=== PATIENT | female | born 1950 | race American Indian/Alaskan Native ===

== ENCOUNTER 2017-12-07 05:40 | Day surgery (SDC) | payer MEDICARE, OTHER ==
[~2017-12-07] VITALS: Ht 154.9 cm; Wt 72.6 kg
[~2017-12-07 05:40] MED LIST: ASPIRIN EC81 MG PO; CLARITIN10 MG PO; CYCLOBENZAPRINE10 MG PO; FISH OIL300 MG PO; FOLGARD TABLET1 EAC1 PO; GLIPIZIDE XL10 MG PO; GLUCERNA237 M1 PO; IBUPROFEN800 MG PO; IRON325 M1 PO; JANUMET 50-1,01 EACH PO; KONDREMUL2.5 ML/5 M PO; LANTUS SOL100 UNIT/1 SUB-Q; LIDOCAINE700 MG TOP; LISINOPRIL10 MG PO; LISINOPRIL5 MG PO; LOPERAMIDE2 MG PO; LORATADINE10 MG PO; METFORMIN HCL1000 MG PO; METFORMIN HCL500 MG PO; PERCOCET 5-3251 EACH PO; PYRIDIUM200 MG PO; SENNA8.6 MG PO; SIMVASTATIN10 MG PO; TOLTERODINE TART2 MG PO; URSODIOL300 MG PO; VITAMIN B-12500 MCG PO; VITAMIN D32000 UNI1 PO; VITAMIN D5000 UNIT PO; VITAMIN E100 UNI1 PO; ZINC30 MG PO; [UNRECOGNIZED DRUG - OTHER]
[2017-12-07] MEDS ORDERED: HYDROXYZINE HCL25 MG PO (06:03)
--- NOTE | 2017-12-07 10:03 | OR ---
[facility] [address], [place] [address] Signed DATE OF OPERATION: 12/07/2017 SURGEON: Rajan Hall MD PREOPERATIVE DIAGNOSIS: Chronic severe interstitial cystitis. POSTOPERATIVE DIAGNOSIS: Chronic severe interstitial cystitis. NAMES OF PROCEDURES: Diagnostic cystoscopy with hydrodistention. ANESTHESIA: General. ESTIMATED BLOOD LOSS: 30 mL. COMPLICATIONS: None. SPECIMENS: None. DRAINS: An 18-Yemeni Garcia catheter, connected to gravity drainage. INDICATIONS FOR PROCEDURE: Ms. Miles is a very pleasant 67-year-old female with a longstanding history of severe chronic interstitial cystitis. She was recently seen by me for her chronic symptoms. She underwent cystoscopy, but which was short lived due to her lack of tolerance of the procedure. She has undergone hydrodistention before in the past and has responded to the procedure. She presents today to undergo cystoscopy with hydrodistention for management of her chronic interstitial cystitis. OPERATIVE FINDINGS: 1. 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 There is no evidence of any suspicious masses or stones within the bladder. Bilateral ureteral orifices are in their normal anatomic location. Electronically Signed By: RAJAN HALL MD 12/07/17 1003 PATIENT NAME: MIKE MILES OPERATIVE REPORT DATE OF : 52 REPORT #: [id number] PHYSICIAN: RAJAN HALL MD PCP: TANIKA ULRICH REPORT IS CONFIDENTIAL AND NOT TO BE RELEASED WITHOUT AUTHORIZATION [facility] [address], [place] [address] Signed 2. During filling of the bladder, the patient did begin to ooze blood from the ulcerated mucosa. The bleeding was not severe enough to require active cauterization. It was hard to determine the exact amount of fluid instilled into the bladder because during the procedure, the patient continued to have intermittent bladder spasms that would force fluid out of her bladder. 3. At the end of the procedure, I inserted an 18-Yemeni two-way Garcia catheter and irrigated the catheter to retrieve any residual blood clots present after the procedure. At the end the procedure, her urine was light pink in color. DESCRIPTION OF PROCEDURE: After informed consent was obtained, the patient was taken back to the operating room. [facility] room table, where general anesthesia was induced. She was placed in the dorsal lithotomy position and her genitalia were prepped and draped in standard sterile fashion. Using a 30-degree lens and on a 22-Yemeni introducer, rigid cystoscope was inserted through the urethra into her bladder under direct visualization. Panendoscopic views of bladder were then obtained. Please see the findings. The patient immediately began to ooze blood during cystoscopy, limiting my visualization. However, I was able to appreciate the 2-3 rather large Hunner's ulcer present on the lateral gutierrez and dome of the bladder. I continued to fill the bladder and throughout the filling phase the patient intermittently experienced bladder spasms. She was given a total of two B and O suppositories during the procedure to prevent spasms. The distention continued for approximately 15 minutes, which is longer than usual due to the lack of max distention achieved due to detrusor instability. After about 20 minutes, the procedure was then terminated. The patient's bladder was then drained and an 18-Yemeni Garcia catheter was inserted into the patient's bladder and connected to gravity drainage. The catheter was irrigated a couple of times prior to connecting the catheter to gravity drainage. At the end the procedure, there were no significant blood clots present within the patient's bladder. The procedure was then terminated. The patient tolerated the procedure well without any complication. She will now be transferred to the postanesthesia care unit in stable condition. DISPOSITION: I discussed the details of today's procedure with the patient's and answered all of her questions. She will be sent home today in the company of her when she awakens from anesthetic. She will be given B and O suppositories #12 as needed for bladder spasms, along with Cipro 500 mg p.o. b.i.d. for a total of 5 days. I have also renewed her Uribel prescription and I have also given her oxybutynin 5 mg p.o. at bedtime for management of nocturia. She will be scheduled to return to clinic in approximately three weeks for postoperative evaluation. Electronically Signed By: RAJAN HALL MD 12/07/17 1003 PATIENT NAME: MIKE MILES OPERATIVE REPORT DATE OF : 52 REPORT #: [id number] PHYSICIAN: RAJAN HALL MD PCP: TANIKA ULRICH REPORT IS CONFIDENTIAL AND NOT TO BE RELEASED WITHOUT AUTHORIZATION [address] [address] Signed Rajan Hall MD AR/MODL /[id number] Copies: ~ Electronically Signed By: RAJAN HALL MD 12/07/17 1003 PATIENT NAME: MIKE MILES OPERATIVE REPORT DATE OF : 52 REPORT #: [id number] PHYSICIAN: RAJAN HALL MD PCP: TANIKA ULRICH REPORT IS CONFIDENTIAL AND NOT TO BE RELEASED WITHOUT AUTHORIZATION
== END 2017-12-07 13:00 | disposition home or self-care (01) ==
LOC: DS 05:40 → OPS 05:40 → DS 06:45 → OPS 06:45
PROVIDERS: Urology
PROC: 0T7B8ZZ Dilation of Bladder, Via Natural or Artificial Opening Endoscopic (ICD-10-PCS; principal; 2017-12-07 06:45)
DX: N30.10 Interstitial cystitis (chronic) without hematuria (principal); E11.9 Type 2 diabetes mellitus without complications; K21.9 Gastro-esophageal reflux disease without esophagitis; E66.9 Obesity, unspecified; H54.7 Unspecified visual loss; Z79.899 Other long term (current) drug therapy; Z79.4 Long term (current) use of insulin; Z88.0 Allergy status to penicillin; Z88.5 Allergy status to narcotic agent
CPT/HCPCS: J0696; J1100; J1170; J2250; J2405; J3010; J7120

== ENCOUNTER 2020-08-01 21:46 | Emergency (ER) | payer MEDICARE, OTHER ==
[~2020-08-01] VITALS: Ht 154.9 cm; Wt 64.9 kg
[~2020-08-01 21:46] MED LIST changes: +ASPIR-LOW81 MG PO; +ATORVASTATIN CA20 MG PO; +HYDROXYZINE HCL25 MG PO; +OXYBUTYNIN CHLOR5 MG PO; +TRULICITY0.75 MG/0. SUB-Q
[2020-08-01] MEDS ORDERED: LANTUS SOL100 UNIT/1 SUB-Q (22:02)
[2020-08-01] MEDS ORDERED: NOVOLOG FL100 UNIT/1 SUB-Q (22:03)
== END 2020-08-01 23:38 | disposition home or self-care (01) ==
LOC: ED 21:46
DX: E11.65 Type 2 diabetes mellitus with hyperglycemia (principal); Z91.19 Patient's noncompliance with other medical treatment and regimen; I10 Essential (primary) hypertension; Z88.0 Allergy status to penicillin; Z88.5 Allergy status to narcotic agent; Z91.018 Allergy to other foods; Z79.899 Other long term (current) drug therapy; Z79.82 Long term (current) use of aspirin; Z79.4 Long term (current) use of insulin
CPT/HCPCS: 80053; 81001; 82010; 82800; 85025; 99284; J7030

== ENCOUNTER 2022-02-11 07:50 | Emergency (ER) | payer MEDICARE, OTHER ==
[~2022-02-11] VITALS: Ht 154.9 cm; Wt 70.3 kg
[~2022-02-11 07:50] MED LIST changes: +NOVOLOG FL100 UNIT/1 SUB-Q
[2022-02-11] MEDS ORDERED: NAPROSYN500 MG PO (09:11)
[2022-02-11] MEDS ORDERED: PREDNISONE20 MG PO (09:11)
== END 2022-02-11 10:44 | disposition home or self-care (01) ==
LOC: ED 07:50
DX: U07.1 COVID-19 (principal); I10 Essential (primary) hypertension; E11.9 Type 2 diabetes mellitus without complications; J45.909 Unspecified asthma, uncomplicated; Z88.0 Allergy status to penicillin; Z91.018 Allergy to other foods; Z88.5 Allergy status to narcotic agent; Z88.6 Allergy status to analgesic agent; Z79.4 Long term (current) use of insulin; Z79.82 Long term (current) use of aspirin; Z79.899 Other long term (current) drug therapy
CPT/HCPCS: 87502; 94640; 94664; 96374; 99284-25; C9803; U0003

== ENCOUNTER 2023-02-06 21:40 | Observation (INO) | payer MEDICARE, OTHER ==
[~2023-02-06] VITALS: Ht 154.9 cm; Wt 70.3 kg
--- OUTSIDE RECORDS SUMMARY | ~2023-02-06 | XMS | Continuity of Care Document ---
Demographics + + + | Address | [address] | | | [place] [address] | + + + | Preferred Language | Unknown | + + + | Marital Status | | + + + | Uatsdin Affiliation | Unknown | + + + | Race | or | + + + | Ethnic Group | Not or | + + + Author + + + | Author | [facility] | + + + | Organization | [facility] | + + + | Address | [address] [place] [address] | | | [place] [address] | + + + | Phone | | + + + Care Team Providers + + + + | Care Youtuber Name | Role | Phone | + + + + Unavailable | Unavailable | + + + + Unavailable | Unavailable | + + + + Allergies and Intolerances + + + + + + | date | description | facility | reaction | severity | + + + + + + | (no date) | Mild | [facility] | (no reaction) | (no severity) | | [facility] | | | + + + + + + | (no date) | Codeine | [facility] | (no reaction) | (no severity) | | | [facility] | | | + + + + + + | (no date) | Pineapple | [facility] | (no reaction) | (no severity) | | | [facility] | | | + + + + + + | (no date) | Nausea alone | [facility] | (no reaction) | (no severity) | | | [facility] | | | + + + + + + | (no date) | Penicillin | [facility] | (no reaction) | (no severity) | | | [facility] | | | + + + + + + | (no date) | Penicillin | [facility] | (no reaction) | (no severity) | | | [facility] | | | + + + + + + | (no date) | Codeine | [facility] | (no reaction) | (no severity) | | | [facility] | | | + + + + + + Encounters No information. Functional Status No information. Immunizations No information. Medications + + + + | date | description | facility | + + + + | 2022-02-13 00:00 | OXYCODONE | [facility] | | | HCL/ACETAMINOPHEN | | + + + + | 2022-02-11 00:00 | NAPROXEN | [facility] | + + + + | 2016-08-07 00:00 | PHENAZOPYRIDINE HCL | [facility] | + + + + | 2018-04-04 00:00 | PHENAZOPYRIDINE HCL | [facility] | + + + + | 2022-02-13 00:00 | PHENAZOPYRIDINE HCL | [facility] | + + + + | 2022-02-13 00:00 | ASPIRIN | [facility] | + + + + | 2022-02-13 00:00 | DULAGLUTIDE | [facility] | + + + + | 2022-02-13 00:00 | INSULIN ASPART | [facility] | + + + + | 2022-02-13 00:00 | IBUPROFEN | [facility] | + + + + | 2022-02-13 00:00 | ZINC GLUCONATE | [facility] | + + + + | 2022-02-13 00:00 | VITAMIN E ACID SUCCINATE | [facility] | + + + + | 2022-02-13 00:00 | LORATADINE | [facility] | + + + + | 2022-02-13 00:00 | ASPIRIN | [facility] | + + + + | 2022-02-13 00:00 | FERROUS SULFATE | [facility] | + + + + | 2022-02-13 00:00 | LISINOPRIL | [facility] | + + + + | 2022-02-13 00:00 | LORATADINE | [facility] | + + + + | 2022-02-11 00:00 | predniSONE | [facility] | + + + + | 2022-02-13 00:00 | SENNOSIDES | [facility] | + + + + | 2022-02-13 00:00 | CYANOCOBALAMIN (VITAMIN | [facility] | | | B-12) | | + + + + | 2022-02-13 00:00 | LISINOPRIL | [facility] | + + + + | 2022-02-13 00:00 | SIMVASTATIN | [facility] | + + + + | 2022-02-13 00:00 | GLIPIZIDE | [facility] | + + + + | 2022-02-13 00:00 | ATORVASTATIN CALCIUM | [facility] | + + + + | 2022-02-13 00:00 | CHOLECALCIFEROL (VITAMIN | [facility] | | | D3) | | + + + + | 2022-02-13 00:00 | CYCLOBENZAPRINE HCL | [facility] | + + + + | 2022-02-13 00:00 | INSULIN | [facility] | | | HUM. DANIELRECANGELALOG | | + + + + | 2022-02-13 00:00 | TOLTERODINE TARTRATE | [facility] | + + + + | 2022-02-13 00:00 | CHOLECALCIFEROL (VITAMIN | [facility] | | | D3) | | + + + + | 2022-02-13 00:00 | URSODIOL | [facility] | + + + + | 2022-02-13 00:00 | METFORMIN HCL | [facility] | + + + + | 2022-02-13 00:00 | METFORMIN HCL | [facility] | + + + + | 2022-02-13 00:00 | SITAGLIPTIN PHOS/METFORMIN | [facility] | | | HCL | | + + + + | 2022-02-13 00:00 | OXYBUTYNIN CHLORIDE | [facility] | + + + + | 2015-10-20 00:00 | LOPERAMIDE HCL | [facility] | + + + + | 2022-02-13 00:00 | hydrOXYzine HCL | [facility] | + + + + Problems + + + + | date | description | facility | + + + + | 2014-04-30 00:00 | Sepsis | [facility] | + + + + | 2014-07-16 00:00 | Cholangitis | [facility] | + + + + | 2015-03-13 00:00 | Sprain of ankle | [facility] | + + + + | 2015-10-20 00:00 | Acute gastroenteritis | [facility] | + + + + | 2016-08-07 00:00 | Dysuria | [facility] | + + + + | 2016-08-07 00:00 | Hematuria | [facility] | + + + + | 2016-10-02 00:00 | Nonspecific chest pain | [facility] | + + + + | 2017-12-07 00:00 | Chronic interstitial | [facility] | | | cystitis with hematuria | | + + + + | 2018-04-04 00:00 | Bladder spasm | [facility] | + + + + | 2019-02-06 00:00 | Hyperglycemia | [facility] | + + + + | 2022-02-11 00:00 | Infection due to severe [facility] | | | acute respiratory syndrome | | | | coronavirus 2 (SARS-CoV-2) | | + + + + Procedures No information. Results/Labs +--------+--------+ +---------+--------+---------+ | test | date | facility | value | unit | notes | +--------+--------+ +---------+--------+---------+ + + | Result panel 1 | + + + + + + + + + | | 2022-02-11 | [facility] | POSITIVE | (missing) | (missing) | | (unavailable | 08:03 | [place] | | | | [facility] ) [facility] | | | | + + + + + + + + + | Result panel 2 | + + + + + + + + + | | 2022-02-11 | [facility] | NEGATIVE | (missing) | (missing) | | (unavailable | 08:03 | [facility] | [facility] | | | | + + + + + + + + + | Result panel 3 | + + + + + + + + + | | 2022-02-11 | [facility] | NEGATIVE | (missing) | (missing) | | (unavailable | 08:03 | [facility] | | | | + + + + + + + + + | Result panel 4 | + + + + + + + + + | | 2022-02-11 | [facility] | NEGATIVE | (missing) | (missing) | | (unavailable | 08:03 | [facility] | | | | + + + + + + + Social History No information. Vital Signs + + + +---------+ | date | measurement | value | units | + + + +---------+ | 2022-02-11 00:00 | BMI | 29.3 | kg/m2 | + + + +---------+ | 2022-02-11 00:00 | BP_diastolic | 73 | mmHg | + + + +---------+ | 2022-02-11 00:00 | BP_systolic | 110 | mmHg | + + + +---------+ | 2022-02-11 00:00 | heart_rate | 94 | /min | + + + +---------+ | 2022-02-11 00:00 | height_metric | 154.94 | cm | + + + +---------+ | 2022-02-11 00:00 | height_standard | 61 | in | + + + +---------+ | 2022-02-11 00:00 | o2_saturation | 97 | % | + + + +---------+ | 2022-02-11 00:00 | respiration_rate | 18 | /min | + + + +---------+ | 2022-02-11 00:00 | temperature_metric | 37 | C | | | | | | + + + +---------+ | 2022-02-11 00:00 | | 98.6 | F | | | temperature_standar | | | | | d | | | + + + +---------+ | 2022-02-11 00:00 | weight_metric | 70.31 | kg | + + + +---------+ | 2022-02-11 00:00 | weight_standard | 155 | lb | + + + +---------+ | 2022-02-11 00:00 | weight_standard | 155.01 | lb | + + + +---------+"
--- OUTSIDE RECORDS SUMMARY | ~2023-02-06 | XMS | Continuity of Care Document ---
Demographics + + + | Address | [address] | | | [place] [address] | + + + | Preferred Language | Unknown | + + + | Marital Status | | + + + | Rastafari Affiliation | Unknown | + + + | Race | or | + + + | Ethnic Group | Not or | + + + Author + + + | Author | [facility] | + + + | Organization | [facility] | + + + | Address | [address] [place] [address] | | | [place] [address] | + + + | Phone | | + + + Care Team Providers + + + + | Care Quality Improvement Coordinator Name | Role | Phone | + [...] + + + | (no date) | hydrocodone | [facility] | (no reaction) | (no severity) | | | bitartrate | | | | + + + + + + | (no date) | Penicillins | [facility] | (no reaction) | (no severity) | + + + + + + | (no date) | codeine | [facility] | (no reaction) | (no severity) | + + + + + + | (no date) | pineapple | [facility] | (no reaction) | (no severity) | + + + + + + [...] + | 2022-02-13 00:00 | OXYCODONE | [facility] | | | HCL/ACETAMINOPHEN | | + + + + | 2022-02-11 00:00 | NAPROXEN | [facility] | + + + + | 2016-08-07 00:00 | PHENAZOPYRIDINE HCL | [facility] | + + + + | 2018-04-04 00:00 | PHENAZOPYRIDINE HCL | [facility] | + + + + | 2022-02-13 00:00 | PHENAZOPYRIDINE HCL | [facility] | + + + + | 2022-02-13 00:00 | ASPIRIN | [facility] | + + + + | 2022-02-13 00:00 | DULAGLUTIDE | [facility] | + + + + | 2022-02-13 00:00 | INSULIN ASPART | [facility] | + + + + | 2022-02-13 00:00 | IBUPROFEN | [facility] | + + + + | 2022-02-13 00:00 | ZINC GLUCONATE | [facility] | + + + + | 2022-02-13 00:00 | VITAMIN E ACID SUCCINATE | [facility] | + + + + | 2022-02-13 00:00 | LORATADINE | [facility] | + + + + | 2022-02-13 00:00 | ASPIRIN | [facility] | + + + + | 2022-02-13 00:00 | FERROUS SULFATE | [facility] | + + + + | 2022-02-13 00:00 | LISINOPRIL | [facility] | + + + + | 2022-02-13 00:00 | LORATADINE | [facility] | + + + + | 2022-02-11 00:00 | predniSONE | [facility] | + + + + | 2022-02-13 00:00 | SENNOSIDES | [facility] | + + + + | 2022-02-13 00:00 | CYANOCOBALAMIN (VITAMIN | [facility] | | | B-12) | | + + + + | 2022-02-13 00:00 | LISINOPRIL | [facility] | + + + + | 2022-02-13 00:00 | SIMVASTATIN | [facility] | + + + + | 2022-02-13 00:00 | GLIPIZIDE | [facility] | + + + + | 2022-02-13 00:00 | ATORVASTATIN CALCIUM | [facility] | + + + + | 2022-02-13 00:00 | CHOLECALCIFEROL (VITAMIN | [facility] | | | D3) | | + + + + | 2022-02-13 00:00 | CYCLOBENZAPRINE HCL | [facility] | + + + + | 2022-02-13 00:00 | INSULIN | [facility] | | | HUM. DANIELRECCesiliaANLOG | | + + + + | 2022-02-13 00:00 | TOLTERODINE TARTRATE | [facility] | + + + + | 2022-02-13 00:00 | CHOLECALCIFEROL (VITAMIN | [facility] | | | D3) | | + + + + | 2022-02-13 00:00 | URSODIOL | [facility] | + + + + | 2022-02-13 00:00 | METFORMIN HCL | [facility] | + + + + | 2022-02-13 00:00 | METFORMIN HCL | [facility] | + + + + | 2022-02-13 00:00 | SITAGLIPTIN PHOS/METFORMIN | [facility] | | | HCL | | + + + + | 2022-02-13 00:00 | OXYBUTYNIN CHLORIDE | [facility] | + + + + | 2015-10-20 00:00 | LOPERAMIDE HCL | [facility] | + + + + | 2022-02-13 00:00 | hydrOXYzine HCL | [facility] | + + + + Problems + + + + | date | description | facility | + + + + | 2014-04-30 00:00 | Sepsis | [facility] | + + + + | 2014-07-16 00:00 | Cholangitis | [facility] | + + + + | 2015-03-13 00:00 | Sprain of ankle | [facility] | + + + + | 2015-10-20 00:00 | Acute gastroenteritis | [facility] | + + + + | 2016-08-07 00:00 | Dysuria | [facility] | + + + + | 2016-08-07 00:00 | Hematuria | [facility] | + + + + | 2016-10-02 00:00 | Nonspecific chest pain | [facility] | + + + + | 2017-12-07 00:00 | Chronic interstitial | [facility] | | | cystitis with hematuria | | + + + + | 2018-04-04 00:00 | Bladder spasm | [facility] | + + + + | 2019-02-06 00:00 | Hyperglycemia | [facility] | + + + + | 2022-02-11 00:00 | Infection due to severe | [facility] | | | acute respiratory syndrome | | | | coronavirus 2 (SARS-CoV-2) | | + + + + | 2022-02-11 07:50 | TYPE 2 DIABETES MELLITUS | [facility] | | | WITHOUT COMPLICATIONS | | + + + + | 2022-02-11 07:50 | Essential (primary) | [facility] | | | hypertension | | + + + + | 2022-02-11 07:50 | UNSPECIFIED ASTHMA, | [facility] | | | UNCOMPLICATED | | + + + + | 2022-02-11 07:50 | COUGH, UNSPECIFIED | [facility] | + + + + | 2022-02-11 07:50 | COVID-19 | [facility] | + + + + | 2022-02-11 07:50 | FIELD SUPPORT REP (CURRENT) USE OF | [facility] | | | INSULIN | | + + + + | 2022-02-11 07:50 | FIELD SUPPORT REP (CURRENT) USE OF | [facility] | | | ASPIRIN | | + + + + | 2022-02-11 07:50 | OTHER FIELD SUPPORT REP (CURRENT) | [facility] | | | DRUG THERAPY | | + + + + | 2022-02-11 07:50 | ALLERGY STATUS TO | [facility] | | | PENICILLIN | | + + + + | 2022-02-11 07:50 | ALLERGY STATUS TO NARCOTIC | [facility] | | | AGENT STATUS | | + + + + | 2022-02-11 07:50 | ALLERGY STATUS TO | [facility] | | | ANALGESIC AGENT STATUS | | + + + + | 2022-02-11 07:50 | ALLERGY TO OTHER FOODS | [facility] | + + + + | 2022-08-20 08:43 | INTERSTITIAL CYSTITIS | [facility] | | | (CHRONIC) WITHOUT HEMATURIA | | | | | | + + + + | 2022-10-01 07:11 | INTERSTITIAL CYSTITIS | [facility] | | | (CHRONIC) WITHOUT HEMATURIA | | | | | | + + + + | 2022-11-04 12:41 | ENCNTR SCREEN MAMMOGRAM | [facility] | | | FOR MALIGNANT NEOPLASM OF | | | | BREAST | | + + + + Procedures [...]
--- OUTSIDE RECORDS SUMMARY | ~2023-02-06 | XMS | Continuity of Care Document ---
Demographics + + + | Address | [address] | | | [place] [address] | + + + | Preferred Language | Unknown | + + + | Marital Status | | + + + | Episcopal Affiliation | Unknown | + + + | Race | or | + + + | Ethnic Group | Not or | + + + Author + + + | Author | [facility] | + + + | Organization | [facility] | + + + | Address | [address] [place] [address] | | | [place] [address] | + + + | Phone | | + + + Care Team Providers + + + + | Care Blueprint Machine Operator Name | Role | Phone | + [...] + | 2022-02-13 00:00 | OXYCODONE | [facility] | | | HCL/ACETAMINOPHEN | | + + + + | 2022-02-11 00:00 | NAPROXEN | [facility] | + + + + | 2016-08-07 00:00 | PHENAZOPYRIDINE HCL | [facility] | + + + + | 2018-04-04 00:00 | PHENAZOPYRIDINE HCL | [facility] | + + + + | 2022-02-13 00:00 | PHENAZOPYRIDINE HCL | [facility] | + + + + | 2022-02-13 00:00 | ASPIRIN | [facility] | + + + + | 2022-02-13 00:00 | DULAGLUTIDE | [facility] | + + + + | 2022-02-13 00:00 | INSULIN ASPART | [facility] | + + + + | 2022-02-13 00:00 | IBUPROFEN | [facility] | + + + + | 2022-02-13 00:00 | ZINC GLUCONATE | [facility] | + + + + | 2022-02-13 00:00 | VITAMIN E ACID SUCCINATE | [facility] | + + + + | 2022-02-13 00:00 | LORATADINE | [facility] | + + + + | 2022-02-13 00:00 | ASPIRIN | [facility] | + + + + | 2022-02-13 00:00 | FERROUS SULFATE | [facility] | + + + + | 2022-02-13 00:00 | LISINOPRIL | [facility] | + + + + | 2022-02-13 00:00 | LORATADINE | [facility] | + + + + | 2022-02-11 00:00 | predniSONE | [facility] | + + + + | 2022-02-13 00:00 | SENNOSIDES | [facility] | + + + + | 2022-02-13 00:00 | CYANOCOBALAMIN (VITAMIN | [facility] | | | B-12) | | + + + + | 2022-02-13 00:00 | LISINOPRIL | [facility] | + + + + | 2022-02-13 00:00 | SIMVASTATIN | [facility] | + + + + | 2022-02-13 00:00 | GLIPIZIDE | [facility] | + + + + | 2022-02-13 00:00 | ATORVASTATIN CALCIUM | [facility] | + + + + | 2022-02-13 00:00 | CHOLECALCIFEROL (VITAMIN | [facility] | | | D3) | | + + + + | 2022-02-13 00:00 | CYCLOBENZAPRINE HCL | [facility] | + + + + | 2022-02-13 00:00 | INSULIN | [facility] | | | HUM. DANIELRECANGELALOG | | + + + + | 2022-02-13 00:00 | TOLTERODINE TARTRATE | [facility] | + + + + | 2022-02-13 00:00 | CHOLECALCIFEROL (VITAMIN | [facility] | | | D3) | | + + + + | 2022-02-13 00:00 | URSODIOL | [facility] | + + + + | 2022-02-13 00:00 | METFORMIN HCL | [facility] | + + + + | 2022-02-13 00:00 | METFORMIN HCL | [facility] | + + + + | 2022-02-13 00:00 | SITAGLIPTIN PHOS/METFORMIN | [facility] | | | HCL | | + + + + | 2022-02-13 00:00 | OXYBUTYNIN CHLORIDE | [facility] | + + + + | 2015-10-20 00:00 | LOPERAMIDE HCL | [facility] | + + + + | 2022-02-13 00:00 | hydrOXYzine HCL | [facility] | + + + + Problems + + + + | date | description | facility | + + + + | 2014-04-30 00:00 | Sepsis | [facility] | + + + + | 2014-07-16 00:00 | Cholangitis | [facility] | + + + + | 2015-03-13 00:00 | Sprain of ankle | [facility] | + + + + | 2015-10-20 00:00 | Acute gastroenteritis | [facility] | + + + + | 2016-08-07 00:00 | Dysuria | [facility] | + + + + | 2016-08-07 00:00 | Hematuria | [facility] | + + + + | 2016-10-02 00:00 | Nonspecific chest pain | [facility] | + + + + | 2017-12-07 00:00 | Chronic interstitial | [facility] | | | cystitis with hematuria | | + + + + | 2018-04-04 00:00 | Bladder spasm | [facility] | + + + + | 2019-02-06 00:00 | Hyperglycemia | [facility] | + + + + | 2022-02-11 00:00 | Infection due to severe | [facility] | | | acute [facility] syndrome | [...] (missing) | | (unavailable | 08:03 | [place] | | | | | ) | [...]
[~2023-02-06 21:40] MED LIST changes: +NAPROSYN500 MG PO; +PREDNISONE20 MG PO
[2023-02-06 22:00] LABS: BILIRUBIN, URINE NEGATIVE (negative); BLOOD/HGB, URINE TRACE-I (Negative); KETONE, URINE NEGATIVE (Negative); LEUK ESTERASE, URINE TRACE (negative); NITRITE, URINE NEGATIVE (negative)
[2023-02-06 22:07] LABS: EPITHELIAL CELLS, URINE SQUAMOUS 1+ /lpf (0-1+); REFLEX CULTURE, URINE No (No); WHITE BLOOD CELLS, URINE 0-1 /HPF (0-5)
[2023-02-06 22:15] LABS: MCHC 32.8 g/dl (30-36)
[2023-02-06 22:18] LABS: BASOPHILS 0.1 % (0-2); HEMATOCRIT 40.6 % (35.0-50.0); HEMOGLOBIN 13.3 g/dL (12.0-18.0); LYMPHOCYTES 5.9 % (24-44); MCH 28.5 (27-36); MCV 86.9 fl (81-99); MONOCYTES 0.8 % (0-12); NEUTROPHILS 91.2 % (39-80); PLATELET COUNT 230 K/uL (140-440); RBC 4.68 M/ul (4.3-5.7); RDW 14.2 (10.5-15.0)
[2023-02-06 22:29] LABS: ALBUMIN 3.3 g/dL (3.4-5.0); ALBUMIN/GLOBULIN RATIO 0.85 (1.1-2.4); ANION GAP 13.9 (7-21); BUN/CREATININE RATIO 22.53 (6.0-28.6); CALCIUM 9.2 mg/dL (8.5-10.1); CREATININE, SERUM 0.71 mg/dL (0.55-1.02); POTASSIUM 3.9 mmol/L (3.5-5.1); PROTEIN, TOTAL 7.2 g/dL (6.4-8.2)
[2023-02-06 22:36] LABS: LACTIC ACID, BLOOD 1.9 mmol/L (0.4-2.0)
[2023-02-06 22:45] LABS: AMPHETAMINES, UR NEGATIVE (NEGATIVE); BARBITURATES, UR NEGATIVE (NEGATIVE); BENZODIAZEPINES, UR NEGATIVE (NEGATIVE); BUPRENORPHINE,UR NEGATIVE (NEGATIVE); COCAINE, UR NEGATIVE (NEGATIVE); MARIJUANA (THC), UR NEGATIVE (NEGATIVE); MDMA, UR NEGATIVE (NEGATIVE); METHADONE, UR NEGATIVE (NEGATIVE); METHAMPHETAMINE, UR NEGATIVE (NEGATIVE); OPIATES, UR NEGATIVE (NEGATIVE); OXYCODONE, UR NEGATIVE (NEGATIVE); PHENCYCLIDINE, UR NEGATIVE (NEGATIVE); TRICYCLIC ANTIDEPRESSANT, UR NEGATIVE (NEGATIVE)
[2023-02-06 22:56] LABS: INFLUENZA B NAA NEGATIVE (NEGATIVE); RESPIRATORY SYNCYTIAL VIR NAA NEGATIVE (NEGATIVE)
--- NOTE | 2023-02-07 02:23 | NUR ---
pt ARRIVED TO [facility] FLOOR, BROUGHT BY SECURITY AND COMPLIANCE ANALYSTKULWANT NUNN. pt ORINETED TO ROOM AND CALL LIGHT IN REACH WITH TELE STICKER OVER CALL LIGHT BUTTON pt IS BLIND IN BOTH EYES. BED ALARM ON FOR SAFETY. PRIMARY RN REMAINS IN ROOM FOR pt CARES.
[2023-02-07 02:25] VITALS: BP 124/59
[2023-02-07 05:41] VITALS: BP 130/69
--- NOTE | 2023-02-07 07:20 | NUR ---
received report from [facility] nurse. pt appears to be sleeping comfortably. respirations even and regular.
--- NOTE | 2023-02-07 08:14 | NUR ---
GOT PATIENT NEW ICE WATER. ALSO GAVE PATIENT A WARM WASH CLOTH. BRUSHED HER BRIDGE PATIENT ALSO BRUSHED THE REST OF HER TEETH AND USED MOUTH WASH ALSO PUT CHAP STICK ON. PATIENT IS TALKING ON HER PHONE.
[2023-02-07 08:33] LABS: MCH 28.2 (27-36); RDW 14.1 (10.5-15.0)
[2023-02-07 08:35] LABS: BASOPHILS 0.2 % (0-2); HEMATOCRIT 39.6 % (35.0-50.0); HEMOGLOBIN 12.8 g/dL (12.0-18.0); LYMPHOCYTES 6.7 % (24-44); MCHC 32.2 g/dl (30-36); MCV 87.4 fl (81-99); MONOCYTES 6.2 % (0-12); NEUTROPHILS 85.9 % (39-80); PLATELET COUNT 207 K/uL (140-440); RBC 4.53 M/ul (4.3-5.7)
--- NOTE | 2023-02-07 08:35 | NUR ---
assisted pt up to chair for breakfast. pt attends changed and assisted to bedside commode.
[2023-02-07 08:47] LABS: ALBUMIN 2.9 g/dL (3.4-5.0); ALBUMIN/GLOBULIN RATIO 0.81 (1.1-2.4); ANION GAP 11.6 (7-21); BILIRUBIN, TOTAL 0.8 ng/dL (0.2-1.0); BUN/CREATININE RATIO 16.66 (6.0-28.6); CALCIUM 8.7 mg/dL (8.5-10.1); CREATININE, SERUM 0.6 mg/dL (0.55-1.02); POTASSIUM 3.6 mmol/L (3.5-5.1); PROTEIN, TOTAL 6.5 g/dL (6.4-8.2)
[2023-02-07 09:52] VITALS: BP 132/65
--- NOTE | 2023-02-07 12:58 | NUR ---
PTS FAMILY TO NURSES STATION. PT REQEUSTS "THAT AZO OR WHATEVER" FOR URINARY PAIN. PT REPORTS SHE RECEIVED THIS MEDICATION INTHE ER AND IT HELPED. PTS PRIMARY RN OCCUPIED. DR. KLEIN CONSULTED AND NEW ORDERS GIVEN. ORDERS ENTERED, REPEAT BACK PERFORMED. MEDICATION GIVEN (SEE MAR). PT SITTING IN BED EATING LUNCH. HEAD OF BED AT 40 DEGREES. NO ADDITIONAL REQUESTS OR COMPLAINTS. CALL LIGHT WITHIN REACH. PTS PRIMARY RN UPDATED.
[2023-02-07 13:55] VITALS: BP 123/60
--- NOTE | 2023-02-07 16:00 | NUR ---
HELPED PATIENT WALK TO THE BATHROOM TO TAKE A SHOWER. I STOOD IN THE SHOWER AND HELD HER TELE. PATIENT WASHED HER BODY AND HER HAIR. PATIENT BRAIDED HER OWN HAIR. NEW GOWN AND SOCKS.
[2023-02-07 17:32] VITALS: BP 131/60
--- NOTE | 2023-02-07 18:17 | NUR ---
ROUNDED ON PT. ASSISTED PT TO BATHROOM. PT AMBULATED WELL WITH SBA. IV FLUIDS RUNNING. PT BACK TO BED. NEW PUREWICK IN PLACE. DENIES ANY OTHER NEEDS/COMPLAINTS ATT. CALL LIGHT WITHIN REACH.
--- NOTE | 2023-02-07 19:21 | NUR ---
GOT REPORT FROM DAY SHIFT NURSE. PATIENT LAYING IN BED VISITING WITH FAMILY. PATIENT GIVEN FRESH WATER. DENIES ANY OTHER CARES. CALL LIGHT WITHIN REACH.
--- NOTE | 2023-02-07 20:15 | NUR ---
IN TO ASSIST PT WITH CHANGING ATTENDS, NEW PUREWICK IN PLACE, PT ASSISTED TO THE BSC FOR BM, BACK TO BED, ALL PERSONAL ITEMS IN REACH
--- NOTE | 2023-02-07 21:01 | NUR ---
INTO GIVE PATIENT EVENING MEDICATIONS AND ASSESSMENT. PATIENT DOING WELL, FAMILY IS NOW GONE. INSULIN GIVEN. PRN MEDICATIONS GIVEN. PATIENT HAS ANTIBIOTIC RUNNING THROUGH IV. PATIENT UP TO BEDSIDE COMMODE TO HAVE A BM BUT WAS NOT ABLE TO. NEW ATTENDS PLACED, NEW PUREWICK PLACED.
[2023-02-07 21:15] VITALS: BP 122/47
--- NOTE | 2023-02-07 21:19 | EKG ---
[facility] [address] [place] [address] Signed Sinus tachycardia Right superior axis deviation Possible Anterior infarct , age undetermined Abnormal ECG When compared with ECG of 02-DEC-2017 11:27, No significant change was found Confirmed by Dayanna Klein MD () on 02/07/2023 9:19:30 PM Electronically Signed By: DAYANNA KLEIN MD 02/07/232118 PATIENT NAME: MIKE BRANCH Electrocardiogram DATE OF : 52 PHYSICIAN: DAYANNA KLEIN MD REPORT #: [id number] REPORT IS CONFIDENTIAL AND NOT TO BE RELEASED WITHOUT AUTHORIZATION
--- NOTE | 2023-02-07 22:12 | NUR ---
ASSISTING PT TO THE BSC, SBA, BACK TO BED, NO FURTHER NEEDS
--- NOTE | 2023-02-07 22:18 | NUR ---
PATIENT CURRENTLY SLEEPING, REGULAR RESPIRATIONS NOTED. BED ALARM ON, PATIENT IS BLIND. CALL LIGHT WITHIN REACH WITH A TELE MICROFILMING DOCUMENT PREPARER CALL LIGHT SO PATIENT WILL BE ABLE TO FIND IT. PATIENT USES IT WELL.
--- NOTE | 2023-02-07 23:31 | NUR ---
INTO HANG NEW IV FLUIDS. PATIENT STATES SHE IS HAVING LEFT SHOULDER PAIN, PATIENT ADJUSTED TO LAY ON HER RIGHT SIDE, PILLOW UNDER HER, WARM PACK APPLIED. DOES NOT RADIATE INTO THE LEFT ARM. CALL LIGHT WITHIN REACH, BED ALARM ON. DENIES ANY OTHER CARES.
[2023-02-08 02:01] VITALS: BP 142/78
--- NOTE | 2023-02-08 02:42 | NUR ---
PATIENT IS RESTING IN BED. VITALS TAKEN AND RECORDED. INTAKE AND OUTPUT RECORDED. PATIENT DENIES ANY NEEDS. CALL LIGHT IN REACH.
--- NOTE | 2023-02-08 04:20 | NUR ---
PATIENT IS RESTING IN BED WITH EYES CLOSED, RR 15. CALL LIGHT IN REACH.K
[2023-02-08 05:43] VITALS: BP 137/71
[2023-02-08 05:46] LABS: BASOPHILS 0.6 % (0-2); EOSINOPHILS 4.4 % (0-6); HEMATOCRIT 37.3 % (35.0-50.0); HEMOGLOBIN 12.4 g/dL (12.0-18.0); LYMPHOCYTES 13.8 % (24-44); MCH 28.8 (27-36); MCHC 33.3 g/dl (30-36); MCV 86.5 fl (81-99); MONOCYTES 9.1 % (0-12); NEUTROPHILS 72.1 % (39-80); PLATELET COUNT 197 K/uL (140-440); RBC 4.31 M/ul (4.3-5.7); RDW 14.3 (10.5-15.0)
[2023-02-08 06:01] LABS: ALBUMIN 2.7 g/dL (3.4-5.0); ALBUMIN/GLOBULIN RATIO 0.77 (1.1-2.4); BILIRUBIN, TOTAL 0.5 ng/dL (0.2-1.0); BUN/CREATININE RATIO 17.85 (6.0-28.6); CALCIUM 8.6 mg/dL (8.5-10.1); CREATININE, SERUM 0.56 mg/dL (0.55-1.02); MAGNESIUM 1.7 mg/dL (1.8-2.4); PHOSPHORUS, INORGANIC 3.7 mg/dL (2.5-4.9); PROTEIN, TOTAL 6.2 g/dL (6.4-8.2)
--- NOTE | 2023-02-08 06:18 | NUR ---
PATIENTS VITALS TAKEN AND RECORDED. PATIENT ASSISTED TO THE BSC. PATIENT ABLE TO VOID. PATIENTS INTAKE AND OUTPUT RECORDED. PATIENT IS BACK IN BED RESTING. IV INFUSING PER ORDER. PATIENT DENIES ANY FURTHER NEEDS. CALL LIGHT IN REACH.
--- NOTE | 2023-02-08 06:34 | NUR ---
CALL LIGHT ANSWERED, pt UP TO BSC TO VOID, SAT ON BSC FOR 10+ MINUTES, VOIDED 50MLS. pt BACK TO BED, CALL LIGHT IN REACH AND WARM RAG PROVIDED TO WASH FACE PER pt REQUEST. CALL LIGHT IN REACH.
--- NOTE | 2023-02-08 07:33 | NUR ---
REPORT RECEIVED FROM NIGHT RN - PT UP TO BSC WITH CALL LIGHT IN REACH.
--- NOTE | 2023-02-08 08:00 | NUR ---
ASSESSEMENT AND AM MEDS COMPELTE - PT UP TO COMMODE WITH URNIARY URGENCY AND FREQUENCY. VOIDING SMALL QUANTITIES. UP TO CHAIR FOR BREAKFAST, STANDY ASSIST WITH GUIDING AROUND OBSTICALS. IV SITE PATENT. CALL LIGHT AND CELL PHONE IN REACH.
--- NOTE | 2023-02-08 09:21 | NUR ---
PT UP TO BATHROOM TO VOID - UNABLE TO HAVE BM, DENIES NEED FOR STOOL SOFTNER. BACK TO BED WITH WARM BLANKET. MAG INFUSING - IV SITE PATENT.
[2023-02-08 09:52] VITALS: BP 130/67
[2023-02-08] MEDS ORDERED: CEFPODOXIME PR200 MG PO (10:48)
[2023-02-08] MEDS ORDERED: PYRIDIUM200 MG PO (10:51)
[2023-02-09 16:14] LABS: HEPATITIS A ANTIBODY, IGM Negative (Negative); HEPATITIS B CORE ANTIBODY, IGM Negative (Negative); HEPATITIS B SURFACE ANTIGEN Negative (Negative); HEPATITIS C AB CIA INTERP Negative (Negative); HEPATITIS C ANTIBODY CIA INDEX 0.12 IV (())
== END 2023-02-08 12:35 | disposition home or self-care (01) ==
LOC: ED 21:40 → MS 21:41
PROVIDERS: Internal Medicine; ADMIT Family Medicine; ATTEND Family Medicine
DX: A41.9 Sepsis, unspecified organism (principal); N30.90 Cystitis, unspecified without hematuria; R79.89 Other specified abnormal findings of blood chemistry; E11.9 Type 2 diabetes mellitus without complications; Z88.0 Allergy status to penicillin; Z88.5 Allergy status to narcotic agent; Z79.4 Long term (current) use of insulin; Z79.82 Long term (current) use of aspirin; Z79.899 Other long term (current) drug therapy; Z20.822 Contact with and (suspected) exposure to COVID-19
CPT/HCPCS: 36415; 71045; 71260; 74177; 80053; 80074; 81001; 83605; 83735; 84100; 84443; 85025; 85379; 87502; 93005; 93010; C9803; J0696; J1650; J1815; J3475; J7030; J7121; U0002

== ENCOUNTER 2023-06-15 17:32 | Emergency (ER) | payer MEDICARE, OTHER ==
[~2023-06-15] VITALS: Ht 154.9 cm; Wt 68.6 kg
[~2023-06-15 17:32] MED LIST changes: +CEFPODOXIME PR200 MG PO
[2023-06-15 18:22] LABS: BASOPHILS 0.4 % (0-2); EOSINOPHILS 0.7 % (0-6); HEMATOCRIT 39.7 % (35.0-50.0); HEMOGLOBIN 13.2 g/dL (12.0-18.0); LYMPHOCYTES 7.3 % (24-44); MCHC 33.4 g/dl (30-36); MCV 87.1 fl (81-99); MONOCYTES 7.9 % (0-12); NEUTROPHILS 83.7 % (39-80); PLATELET COUNT 193 K/uL (140-440); RBC 4.55 M/ul (4.3-5.7)
[2023-06-15 18:42] LABS: ALBUMIN 3.6 g/dL (3.4-5.0); ANION GAP 11.9 (7-21); BUN/CREATININE RATIO 15.47 (6.0-28.6); CALCIUM 8.5 mg/dL (8.5-10.1); CREATININE, SERUM 0.84 mg/dL (0.55-1.02); POTASSIUM 3.9 mmol/L (3.5-5.1); PROTEIN, TOTAL 7.2 g/dL (6.4-8.2)
[2023-06-15 18:48] LABS: LACTIC ACID, BLOOD 1.6 mmol/L (0.4-2.0)
[2023-06-15 19:49] LABS: BILIRUBIN, URINE NEGATIVE (negative); BLOOD/HGB, URINE NEGATIVE (Negative); KETONE, URINE NEGATIVE (Negative); LEUK ESTERASE, URINE NEGATIVE (negative); NITRITE, URINE NEGATIVE (negative)
[2023-06-15 21:01] LABS: INFLUENZA B NAA NEGATIVE (NEGATIVE); RESPIRATORY SYNCYTIAL VIR NAA NEGATIVE (NEGATIVE)
[2023-06-15] MEDS ORDERED: PAXLOVID 300-11 EACH PO (21:25)
[2023-06-15] MEDS ORDERED: ONDANSETRON ODT4 MG PO (21:27)
[2023-06-15] MEDS ORDERED: CYCLOBENZAPRINE10 MG PO (21:27)
[2023-06-15 21:44] VITALS: BP 128/64
== END 2023-06-15 21:47 | disposition home or self-care (01) ==
LOC: ED 17:32
PROVIDERS: Emergency Medicine; Family Medicine
DX: U07.1 COVID-19 (principal); I10 Essential (primary) hypertension; E11.9 Type 2 diabetes mellitus without complications; Z88.0 Allergy status to penicillin; Z88.5 Allergy status to narcotic agent; Z91.018 Allergy to other foods; Z79.82 Long term (current) use of aspirin; Z79.4 Long term (current) use of insulin; Z79.899 Other long term (current) drug therapy
CPT/HCPCS: 36415; 80053; 81003; 83605; 85025; 87040; 87502; 96374; 96375; 96376; 99283-25; A9270; C9803; J1170; J2405; J7030; U0002

== ENCOUNTER 2024-06-03 08:25 | Inpatient (IN) | payer MEDICARE, OTHER ==
[~2024-06-03] VITALS: Ht 154.9 cm; Wt 65.9 kg
[~2024-06-03 08:25] MED LIST changes: +ONDANSETRON ODT4 MG PO; +PAXLOVID 300-11 EACH PO
[2024-06-03] MEDS ORDERED: CEFTRIAXONE/SODIUM CHLORIDE 2 GM/100 ML PIGGYBACK IV ONE (09:00)
[2024-06-03] MEDS ORDERED: SODIUM CHLORIDE 0.9% 1,000 ML IV ONE ×2 (09:00→11:30)
[2024-06-03] MEDS ORDERED: HYDROmorphone HCL 1 MG/ML SYR IV PRN (09:00)
[2024-06-03] MEDS ORDERED: ondansetron HCL 4 MG/2 ML VIAL IV ONE (09:15)
[2024-06-03 09:17] LABS: BASOPHILS 0.3 % (0-2); EOSINOPHILS 0.8 % (0-6); HEMATOCRIT 43.1 % (35.0-50.0); LYMPHOCYTES 2.5 % (24-44); MCH 30.1 (27-36); MCHC 34.9 g/dl (30-36); MCV 86.3 fl (81-99); MONOCYTES 0.6 % (0-12); NEUTROPHILS 95.8 % (39-80); PLATELET COUNT 264 K/uL (140-440); RBC 4.99 M/ul (4.3-5.7); RDW 13.6 (10.5-15.0)
[2024-06-03 09:36] LABS: LACTIC ACID, BLOOD 2.5 mmol/L (0.4-2.0)
[2024-06-03 09:42] LABS: ALBUMIN 3.5 g/dL (3.4-5.0); ALBUMIN/GLOBULIN RATIO 0.85 (1.1-2.4); ANION GAP 15.6 (7-21); BILIRUBIN, TOTAL 1.6 ng/dL (0.2-1.0); BUN/CREATININE RATIO 15.9 (6.0-28.6); CALCIUM 9.4 mg/dL (8.5-10.1); CREATININE, SERUM 0.88 mg/dL (0.55-1.02); POTASSIUM 3.6 mmol/L (3.5-5.1); PROTEIN, TOTAL 7.6 g/dL (6.4-8.2)
[2024-06-03 10:09] LABS: BILIRUBIN, URINE NEGATIVE (negative); BLOOD/HGB, URINE NEGATIVE (Negative); KETONE, URINE TRACE (Negative); LEUK ESTERASE, URINE NEGATIVE (negative); NITRITE, URINE NEGATIVE (negative)
[2024-06-03 10:14] LABS: CRYSTALS, URINE NONE SEEN (0-1+); EPITHELIAL CELLS, URINE SQUAMOUS 1+ /lpf (0-1+); RED BLOOD CELLS, URINE 0-1 /hpf (0-5)
[2024-06-03 10:15] LABS: BACTERIA, URINE NONE SEEN /hpf (negative); CASTS, URINE NONE SEEN \\lpf; COLLECTION TYPE, URINE CLEAN CATCH; REFLEX CULTURE, URINE No (No)
[2024-06-03] MEDS ORDERED: OZEMPIC0.25 MG/02 SUB-Q (10:22)
[2024-06-03 11:19] LABS: LACTIC ACID, BLOOD 1.7 mmol/L (0.4-2.0)
[2024-06-03] MEDS ORDERED: PHENAZOPYRIDINE HCL 100 MG TAB PO ONE (11:30)
[2024-06-03 12:52] LABS: AMPHETAMINES, URINE NEGATIVE (NEGATIVE); BARBITURATES, URINE NEGATIVE (NEGATIVE); BENZODIAZEPINE, URINE NEGATIVE (NEGATIVE); BUPRENORPHINE, URINE NEGATIVE (NEGATIVE); CANNABINOID, URINE NEGATIVE (NEGATIVE); COCAINE, URINE NEGATIVE (NEGATIVE); ECSTASY, URINE NEGATIVE (NEGATIVE); FENTANYL, URINE NEGATIVE (NEGATIVE); METHADONE, URINE NEGATIVE (NEGATIVE); OPIATES, URINE POSITIVE (NEGATIVE); OXYCODONE, URINE NEGATIVE (NEGATIVE); PHENCYCLIDINE, URINE NEGATIVE (NEGATIVE)
[2024-06-03] MEDS ORDERED: SODIUM CHLORIDE 0.9% 1,000 ML IV SCH (13:45)
[2024-06-03] MEDS ORDERED: IBLOOD GLUCOSE TEST STRIP 1 EA TEST XX PRN (13:45)
[2024-06-03] MEDS ORDERED: DEXTROSE 5% 1,000 ML IV PRN (13:45)
[2024-06-03] MEDS ORDERED: DEXTROSE 50% 50 ML SYR IV PRN ×2 (13:45)
[2024-06-03] MEDS ORDERED: ondansetron HCL 4 MG/2 ML VIAL IV PRN (13:45)
[2024-06-03] MEDS ORDERED: GLUCAGON,HUMAN RECOMBINANT 1 MG/ML VIAL SUB-Q PRN (13:45)
--- NOTE | 2024-06-03 14:20 | NUR ---
PT ARRIVES VIA STRETCHER FROM ED, REPORT RECEIVED FROM KULWANT CALVIN. PT TRANSFERRED TO HOSPITAL BED AT THIS TIME. VS AND WEIGHT OBTAINED.
[2024-06-03 14:37] VITALS: BP 187/65
--- NOTE | 2024-06-03 14:46 | NUR ---
ASSESSMENT COMPLETE. PT COMPLAINS OF GENITAL REGION PAIN AT AN 8/10, PRN PAIN MEDICATION ADMINISTERED. CPOX APPLIED AT THIS TIME, SPO2 DECREASED AT 85% AFTER MEDICATION ADMINISTRATION. OXYGEN VIA NC APPLIED AT 1L, PT SPO2 INCREASES TO 95% AND SUSTAINS ABOVE 95% THROUGHOUT ASSESSMENT. LUNG SOUNDS CLEAR THROUGHOUT. HEART MURMUR NOTED, PT HAS HX OF THIS. PT HR TACHY THROUGHOUT ASSESSMENT IN 120s AND UP TO 140s WITH MOVEMENT. BOWEL TONES ACTIVE, NO TENDERNESS, NO NAUSEA AT THIS TIME. PT REPORTS SHE HAD A REGULAR BOWEL MOVEMENT THIS MORNING. PULSES 2+ IN ALL EXTREMETIES, PT REPORTS CHRONIC NUMBNESS/TINGLING. DRYNESS WITH MILD SCALING NOTED TO BILAT FEET - PT REPORTS SHE USES A CREAM GIVEN TO HER BY HER DOCTOR FOR HER DRY FEET. PT IV FLUSHES WNL, IVF INFUSING ORDERED. PT IS DROWSY AT THIS TIME, FALLING ASLEEP IN BETWEEN QUESTIONS BUT REPORTING HER PAIN HAS NOW RESOLVED COMPLETELY. PT IS LEGALLY BLIND, REPORTS THAT SHE DOES NOT USE ASSISTIVE DEVICES AT HOME "JUST KNOW MY HOME". HER SON LIVES WITH HER AT THIS TIME AND ASSISTS IN COOKING HER MEALS. PT REPORTS SHE DOES DO HER OWN LAUNDRY. PULL-UP IN PLACE AT THIS TIME FOR PTs REPORT OF URGENCY. PT HAS NO OTHER NEEDS AT THIS TIME, CALL LIGHT IN REACH.
--- NOTE | 2024-06-03 15:35 | EKG ---
[facility] [address] [place] [address] Signed Sinus tachycardia Right superior axis deviation Possible Right ventricular hypertrophy Inferior infarct , age undetermined Abnormal ECG When compared with ECG of 06-FEB-2023 22:07, No significant change was found Confirmed by Dayanna Klein MD () on 06/03/2024 3:35:33 PM Electronically Signed By: DAYANNA KLEIN MD 06/03/24 1535 PATIENT NAME: MIKE BRANCH Electrocardiogram DATE OF : 52 PHYSICIAN: DAYANNA KLEIN MD REPORT #: [id number] REPORT IS CONFIDENTIAL AND NOT TO BE RELEASED WITHOUT AUTHORIZATION
--- NOTE | 2024-06-03 15:56 | NUR ---
PATIENT IN BED AT THIS TIME. SECTION GANG WORKER DID HOURLY ROUNDS. CALL LIGHT WITHIN REACH, NO FURTHER NEEDS AT THIS TIME.
--- NOTE | 2024-06-03 16:14 | NUR ---
PT REQUESTING NEW SOCKS, PROVIDED. PT STATES "I THINK I'M GOING TO THROW UP RIGHT NOW." AND HAS 25ML EMESIS IN BAG. PRN NAUSEA MEDICATION ADMINISTERED, SEE AUG. PT TITRATED TO RA AT THIS TIME FOR SUSTAINED SPO2 OF 98% ON 1L. PT SPO2 SUSTAINS 98% ON RA AT THIS TIME. CALL LIGHT IN REACH, PT WITH TWO VISITORS AT BEDSIDE.
[2024-06-03] MEDS ORDERED: INSULIN LISPRO 100 UNIT/ML ML SUB-Q SCH (17:00)
[2024-06-03] MEDS ORDERED: IBLOOD GLUCOSE TEST STRIP 1 EA TEST VI SCH (17:00)
[2024-06-03 17:17] VITALS: BP 107/55
[2024-06-03 17:22] VITALS: BP 107/55
--- NOTE | 2024-06-03 17:38 | NUR ---
PT HAS SECOND EPISODE OF EMESIS, 50ML OR YELLOW EMESIS. MD NOTIFIED. MD GIVES VERBAL ORDER FOR COMPAZINE IV, 5MG Q6H PRN. ORDER INPUT.
[2024-06-03] MEDS ORDERED: PROCHLORPERAZINE EDISYLATE 10 MG/2 ML VIAL IV PRN (17:45)
--- NOTE | 2024-06-03 18:01 | NUR ---
PRN NAUSEA MEDICATION ADMINISTERED ORDERED. PT BRIEF CHANGED AT THIS TIME, GASPER-CARE PROVIDED. PT ASSISTED TO REPOSITION IN BED. PT HAS FAMILY MEMBERS WHOM REMAIN IN THE ROOM AT THIS TIME. NO OTHER NEEDS, CALL LIGHT IN REACH.
--- NOTE | 2024-06-03 19:10 | NUR ---
BOARD UPDATED. REPORT RECEIVED FROM ALFRED/SELAM BLUM. pt RESTING IN THE BE WITH EYES CLOSED. RR EVEN AND UNLABORED. CALL LIGHT WITHIN REACH.
[2024-06-03 21:04] VITALS: BP 107/55
--- NOTE | 2024-06-03 21:15 | NUR ---
ASSESSMENT AND VITAL SIGNS DONE. pt UP TO BR WITH SBA. pt ON RA. SATTING AT 97%. BG CHECKED WITH A RESULTS OF 174. SS INSULIN ADMINISTERED. pt DENIES ANY OTHER NEEDS AT THIS TIME. pt BACK TO BED. IV ASSESSED, WNL. CALL LIGHT WITHIN REACH.
[2024-06-03 21:19] VITALS: BP 107/55
--- NOTE | 2024-06-03 22:51 | NUR ---
pt IV PUMP ALARMING. NEW IVF BAG HUNG. pt RESTING IN THE BED WITH EYES CLOSED. RR EVEN AND UNLABORED. CALL LIGHT WITHIN REACH.
[2024-06-04] VITALS (11 sets, daily range): BP systolic 110–144; BP diastolic 55–64
--- NOTE | 2024-06-04 00:33 | NUR ---
pt RESTING IN THE BED WITH EYES CLOSED. RR EVEN AND UNLABORED. CALL LIGHT WITHIN REACH.
--- NOTE | 2024-06-04 01:27 | NUR ---
CALL LIGHT ANSWERED. PT STATED THAT SHE WAS WET. COUNTER TACKER AND RN ASSISTED PT TO STAND AND CHANGED PT BREIF. PT THEN WANTED TO USE BATHROOM BEFORE GETTING BACK IN BED. PT ASSISTED TO BATHROOM. PT VOIDED AND ASSISTED BACK TO BED. VITALS AND I&O OBTAINED AND DOCUMENTED. PT STATES NO FURTHER NEEDS AT THIS TIME. CALL LIGHT WITHIN REACH.
--- NOTE | 2024-06-04 03:28 | NUR ---
pt CALLED TO USE THE BR. SBA. PURE WICK PLACED. WATER REFRESHED. pt DENIES ANY OTHER NEEDS AT OTHER NEEDS AT THIS TIME. CALL LIGHT WITHIN REACH.
--- NOTE | 2024-06-04 05:16 | NUR ---
ASSESSMENT AND VITAL SIGNS DONE. pt REQUESTS SNACK. PUDDING PROVIDED. pt DENIES ANY OTHER NEEDS AT THIS TIME. CALL LIGHT WITHIN REACH.
[2024-06-04 05:21] LABS: BASOPHILS 0.1 % (0-2); EOSINOPHILS 0.7 % (0-6); HEMATOCRIT 34.8 % (35.0-50.0); HEMOGLOBIN 11.9 g/dL (12.0-18.0); MCH 29.6 (27-36); MCHC 34.3 g/dl (30-36); MCV 86.3 fl (81-99); MONOCYTES 5.8 % (0-12); NEUTROPHILS 87.4 % (39-80); PLATELET COUNT 186 K/uL (140-440); RBC 4.03 M/ul (4.3-5.7); RDW 13.5 (10.5-15.0)
[2024-06-04 05:57] LABS: ALBUMIN 2.4 g/dL (3.4-5.0); ALBUMIN/GLOBULIN RATIO 0.73 (1.1-2.4); ANION GAP -5.7 (7-21); BILIRUBIN, TOTAL 1.4 ng/dL (0.2-1.0); BUN/CREATININE RATIO 23.61 (6.0-28.6); CREATININE, SERUM 0.72 mg/dL (0.55-1.02); MAGNESIUM 1.8 mg/dL (1.8-2.4); PHOSPHORUS, INORGANIC 2.7 mg/dL (2.5-4.9); POTASSIUM 3.3 mmol/L (3.5-5.1); PROTEIN, TOTAL 5.7 g/dL (6.4-8.2)
--- NOTE | 2024-06-04 07:20 | NUR ---
REPORT RECEIVED FROM KULWANT SKAGGS. PT RESTING IN BED WITH EYES CLOSED, RR EVEN AND UNLABORED. BEDSIDE CPOX READS 95%, PT IS ON ROOM AIR. CALL LIGHT IN REACH.
--- NOTE | 2024-06-04 07:30 | NUR ---
patient up to br w/1pa. voided 100 urine bright and dark orange coloring. Am care completed. hair brushed and braided. chair alarm on, pt has no other needs at this time. call light within reach.
--- NOTE | 2024-06-04 08:26 | NUR ---
PT SITTING UP IN RECLINER AT THIS TIME, BREAKFAST TRAY BEFORE HER. CALL LIGHT IN REACH.
[2024-06-04] MEDS ORDERED: ENOXAPARIN SODIUM 40 MG/0.4 ML SYR SUB-Q SCH (09:00)
--- NOTE | 2024-06-04 09:03 | NUR ---
MEDICATION ADMINISTERED PER MAR, ASSESSMENT COMPLETE. PT IS UP IN THE RECLINER, RECENTLY FINISHED HER BREAKFAST. PT REPORTS NO PAIN OR NAUSEA AT THIS TIME. LUNG SOUNDS CLEAR THROUGHOUT, HEART SOUNDS HEARD WNL, TELE #[address] REPORTS HR OF 94 AT THIS TIME. BOWEL TONES ARE ACTIVE IN ALL FOUR QUADRANTS, PT REPORTS NO TENDERNESS TO PALPATION. PT STATES SHE HAS NOT HAD A BOWEL MOVEMENT YET THIS AM, BUT BELIEVES "IT'S BREWING". PULSES 2+ IN ALL FOUR EXTREMETIES, PT REPORTS CHRONIC NUMBNESS/TINGLING IN HANDS AND FEET. IV IN R FOREARM FLUSHES WNL WITH BRISK BLOOD RETURN NOTED, IVF INFUSING ORDERED. PTs CPOX REMOVED AT THIS TIME PT HAS NOT BEEN REQUESTING PRN PAIN MEDICATION WHICH WAS CAUSING SOME SEDATION YESTERDAY. PT REMAINS SITTING UP IN RECLINER, CURRENTLY SPEAKING ON PHONE WITH FAMILY MEMBERS. CALL LIGHT IN REACH, NO OTHER NEEDS AT THIS TIME.
[2024-06-04 09:38] LABS: BILIRUBIN, URINE POSITIVE (negative); BLOOD/HGB, URINE LARGE (Negative); KETONE, URINE SMALL (Negative); LEUK ESTERASE, URINE NEGATIVE (negative); NITRITE, URINE POSITIVE (negative)
[2024-06-04 10:09] LABS: BACTERIA, URINE RARE /hpf (negative); CASTS, URINE NONE SEEN \\lpf; COLLECTION TYPE, URINE CLEAN CATCH; CRYSTALS, URINE NONE SEEN (0-1+); EPITHELIAL CELLS, URINE SQUAMOUS 4+ /lpf (0-1+); RED BLOOD CELLS, URINE >50 /hpf (0-5); REFLEX CULTURE, URINE No (No); WHITE BLOOD CELLS, URINE 21-40 /HPF (0-5)
--- NOTE | 2024-06-04 10:18 | NUR ---
BEHAVIORAL HEALTH SPECIALIST ROUNDING - PT WALKING IN HALLWAY WITH PHYSICAL THERAPY, STEADY ON FEET AND WITHOUT USE OF ASSISTIVE DEVIECES.
--- NOTE | 2024-06-04 10:39 | NUR ---
MD MADE AWARE OF PTs UA RESULTS AT THIS TIME, STATES HE WILL LOOK INTO IT.
[2024-06-04] MEDS ORDERED: CEFTRIAXONE/SODIUM CHLORIDE 1 GM/100 ML PIGGYBACK IV SCH (10:42)
[2024-06-04] MEDS ORDERED: Sodium Chloride 3% 100 ML IV SCH (10:45)
--- NOTE | 2024-06-04 11:13 | NUR ---
ICE PACK PROVIDED FOR GROIN PAIN RATED 2/10. PT HAS VISITOR PRESENT IN ROOM. CURRENTLY HAS NO OTHER REQUESTS AT THIS TIME, CALL LIGHT IN REACH.
[2024-06-04] MEDS ORDERED: PHARMACY RENAL DOSE ADJUSTMENT 1 DOSE MISC PO SCH (12:00)
--- NOTE | 2024-06-04 13:10 | NUR ---
100ML OF ORDERED FLUID FINISHED AT THIS TIME, PT RECONNECTED TO IVF ORDERED.
--- NOTE | 2024-06-04 13:26 | NUR ---
PT USING BATHROOM WITH DEAN GOMEZ AT THIS TIME.
[2024-06-04 14:20] LABS: ANION GAP 11.5 (7-21); BUN/CREATININE RATIO 22.05 (6.0-28.6); CREATININE, SERUM 0.68 mg/dL (0.55-1.02); POTASSIUM 3.5 mmol/L (3.5-5.1)
[2024-06-04] MEDS ORDERED: DEXTROSE 5% 1,000 ML IV SCH (14:45)
--- NOTE | 2024-06-04 15:07 | NUR ---
CLARIFIES IVF ORDERS AND CHANGES PTs SSI TO MODERATE. NEW IVF OF D5W VERIFIED WITH CARLA IN PHARMACY.
--- NOTE | 2024-06-04 15:19 | NUR ---
SECOND ASSESSMENT COMPLETE. NEW IVF STARTED ORDERED. PT IS UP IN HER RECLINER WITH BLE ELEVATED. HEART SOUNDS HEARD, MURMUR AUDIBLE - PT HAS HX OF MURMUR. TELE IN PLACE WITH REGULAR RYTHYM, HR NOTED 90. PT REPORTS NO SOB, DIZZINESS, OR LIGHTHEADEDNESS. PT HAS AMBULATED WITH CNAs AND THIS RN TO THE RESTROOM SEVERAL TIMES THIS SHIFT AND DENIES NAUSEA NOW OR AT ANY POINT SO FAR TODAY. IV IN R FOREARM FLUSHES WNL. DENIES PAIN. NO OTHER REQUESTS AT THIS TIME, CALL LIGHT IN REACH.
--- NOTE | 2024-06-04 15:50 | NUR ---
PT AMBULATES TO RESTROOM WITH SAFETY CUES ONLY. AMBULATES BACK TO RECLINER AND RESTS WITH BLE ELEVATED. NO OTHER REQUESTS AT THIS TIME, CALL LIGHT IN REACH.
[2024-06-04 17:12] LABS: ANION GAP 11.6 (7-21); BUN/CREATININE RATIO 20.54 (6.0-28.6); CALCIUM 8.1 mg/dL (8.5-10.1); CREATININE, SERUM 0.73 mg/dL (0.55-1.02); POTASSIUM 3.6 mmol/L (3.5-5.1)
[2024-06-04] MEDS ORDERED: SODIUM CHLORIDE 0.9% 1,000 ML IV SCH (18:00)
[2024-06-04 20:13] LABS: ANION GAP 9.7 (7-21); CALCIUM 8.3 mg/dL (8.5-10.1); CREATININE, SERUM 0.7 mg/dL (0.55-1.02); POTASSIUM 3.7 mmol/L (3.5-5.1)
--- NOTE | 2024-06-04 20:50 | NUR ---
awake, alert and orineted, calm, legally odessa, all cares explained prior to and verbal guidance given. Cooperative. on Room air, clear lungs, no sobw ith exertion. IVF infusing LFA. tele#[address], SR, denies CP. Up to BRp 1PA, voided clear urine. Ligia zheng applied at thist imtiaz, her requests.
--- NOTE | 2024-06-04 22:51 | NUR ---
resatiang, no s/sx distress, IVF infusing w/o problems, bed alarm in place.
--- NOTE | 2024-06-05 00:24 | NUR ---
Resting, eyes closed, no distress, IVF infusing. pure wick in place.
[2024-06-05 01:21] VITALS: BP 132/69
[2024-06-05 01:22] VITALS: BP 132/69
--- NOTE | 2024-06-05 04:22 | NUR ---
resting, on room air, awakens easily, IVF infusing w/o problems, pureqick in place, patent. fresh water given on requests. no c/o pain, tele#[address], denies CP
[2024-06-05 05:16] VITALS: BP 134/62
[2024-06-05 05:16] LABS: BASOPHILS 0.4 % (0-2); EOSINOPHILS 3.4 % (0-6); HEMATOCRIT 33.8 % (35.0-50.0); HEMOGLOBIN 11.9 g/dL (12.0-18.0); LYMPHOCYTES 10.9 % (24-44); MCHC 35.2 g/dl (30-36); MCV 85.2 fl (81-99); MONOCYTES 7.2 % (0-12); NEUTROPHILS 78.1 % (39-80); PLATELET COUNT 169 K/uL (140-440); RBC 3.97 M/ul (4.3-5.7); RDW 13.6 (10.5-15.0)
[2024-06-05 05:25] LABS: ANION GAP 10.7 (7-21); BUN/CREATININE RATIO 17.54 (6.0-28.6); CALCIUM 7.9 mg/dL (8.5-10.1); CREATININE, SERUM 0.57 mg/dL (0.55-1.02); POTASSIUM 3.7 mmol/L (3.5-5.1)
--- NOTE | 2024-06-05 06:19 | NUR ---
Awakens easily, no c/o pain, on room air, IVF infusing w/o problems. pure wick at HS in place. uses attends . tele#[address] SR[address]
[2024-06-05 06:23] VITALS: BP 134/62
--- NOTE | 2024-06-05 07:05 | NUR ---
REPORT RECEIVED FROM KULWANT EID. PT JUST RETURNING TO BED WITH LASHANDA CYBER SECURITY INSTRUCTOR, REQUESTING SNACK - PROVIDED. NO OTHER NEEDS AT THIS TIME, CALL LIGHT IN REACH.
[2024-06-05] MEDS ORDERED: LACTATED RINGER'S 1,000 ML IV SCH (08:15)
--- NOTE | 2024-06-05 08:29 | NUR ---
MORNING MEDICATIONS ADMINISTERED, SEE MAR. PT IS UP IN RECLINER, BREAKFAST FINISHED. CURRENTLY ON PHONE WITH FAMILY. CALL LIGHT IN REACH, NO OTHER NEEDS AT THIS TIME.
--- NOTE | 2024-06-05 08:45 | NUR ---
ASSESSMENT COMPLETE. PT IS UP IN RECLINER WITH BLE ELEVATED. CURRENTLY REPORTS ZERO PAIN. LUNG SOUNDS ARE CLEAR THROUGHOUT, HEART SOUNDS HEARD WNL WITH HEART MURMUR NOTED, PT HAS HX OF MURMUR. BOWEL TONES ACTIVE IN ALL FOUR QUADRANTS WITH NO TENDERNESS OR NAUSEA. PULSES 2+ IN ALL EXTREMETIES, PT REPORTS SHE HAS CHRONIC NUMBNESS/TINGLING OF HANDS AND FEET. NO EDEMA NOTED. PT IS ALERT AND ORIENTED X4, VERBALIZES SEVERAL TIMES THROUGHOUT ASSESSMENT THAT SHE WISHES TO GO HOME NOW - SHE MISSES HER OWN BED. IV IN R FOREARM FLUSHES WNL, IV ABX CURRENTLY INFUSING ORDERED. PT HAS NO OTHER NEEDS AT THIS TIME, CALL LIGHT IN REACH, CELL PHONE IN HER LAP.
[2024-06-05 10:20] VITALS: BP 130/66
[2024-06-05 10:25] VITALS: BP 130/66
[2024-06-05 11:04] LABS: ALBUMIN 2.3 g/dL (3.4-5.0); ALBUMIN/GLOBULIN RATIO 0.7 (1.1-2.4); BILIRUBIN, DIRECT 0.4 mg/dL (0.0-0.2); BILIRUBIN, INDIRECT 0.3 (0.1-0.7); BILIRUBIN, TOTAL 0.7 ng/dL (0.2-1.0); PROTEIN, TOTAL 5.6 g/dL (6.4-8.2)
[2024-06-05] MEDS ORDERED: CEFUROXIME500 MG PO (11:20)
[2024-06-05 16:22] LABS: HEPATITIS A ANTIBODY, IGM Negative (Negative); HEPATITIS B CORE ANTIBODY, IGM Negative (Negative); HEPATITIS B SURFACE ANTIGEN Negative (Negative); HEPATITIS C AB CIA INTERP Negative (Negative)
== END 2024-06-05 12:55 | disposition home or self-care (01) | DRG 871 ==
LOC: ED 08:25 → MS 13:54
PROVIDERS: Emergency Medicine; Student in an Organized Health Care Education/Training Program; ADMIT Family Medicine; ATTEND Family Medicine
DX: A41.9 Sepsis, unspecified organism (principal); K72.00 Acute and subacute hepatic failure without coma; N39.0 Urinary tract infection, site not specified; E87.1 Hypo-osmolality and hyponatremia; E11.9 Type 2 diabetes mellitus without complications; H54.7 Unspecified visual loss; I10 Essential (primary) hypertension; R39.15 Urgency of urination; R74.8 Abnormal levels of other serum enzymes; T50.995A Adverse effect of other drugs, medicaments and biological substances, initial encounter; Z98.51 Tubal ligation status; Z90.49 Acquired absence of other specified parts of digestive tract; Z90.710 Acquired absence of both cervix and uterus; Z98.890 Other specified postprocedural states; Z88.0 Allergy status to penicillin; Z91.018 Allergy to other foods; Z88.5 Allergy status to narcotic agent; Z79.899 Other long term (current) drug therapy; Z79.82 Long term (current) use of aspirin; Z79.4 Long term (current) use of insulin; Z87.440 Personal history of urinary (tract) infections; Z90.89 Acquired absence of other organs; Z86.16 Personal history of COVID-19
CPT/HCPCS: 36415; 51701; 71045; 74177; 80048; 80053; 80074; 80076; 80307; 81001; 83605; 83735; 83880; 84100; 84484; 85025; 93005; 93010; 97161; 97530; 99285-25; J0696; J0780; J1171; J1650; J1815; J2405; J7030; J7070; J7121; J7131; Q9967

== ENCOUNTER 2024-08-19 05:18 | Emergency (ER) | payer MEDICARE, OTHER ==
[~2024-08-19] VITALS: Ht 154.9 cm; Wt 69.9 kg
[~2024-08-19 05:18] MED LIST changes: +CEFUROXIME500 MG PO; +OZEMPIC0.25 MG/02 SUB-Q
[2024-08-19 05:53] LABS: BILIRUBIN, URINE POSITIVE (negative); BLOOD/HGB, URINE TRACE-I (Negative); KETONE, URINE SMALL (Negative); LEUK ESTERASE, URINE NEGATIVE (negative); NITRITE, URINE POSITIVE (negative); PH, URINE 6.5 (5-7)
[2024-08-19 05:59] LABS: BASOPHILS 0.4 % (0-2); EOSINOPHILS 0.9 % (0-6); HEMATOCRIT 41.5 % (35.0-50.0); HEMOGLOBIN 14.3 g/dL (12.0-18.0); LYMPHOCYTES 4.2 % (24-44); MCH 29.6 (27-36); MCHC 34.4 g/dl (30-36); MCV 85.8 fl (81-99); MONOCYTES 8.5 % (0-12); PLATELET COUNT 222 K/uL (140-440); RBC 4.83 M/ul (4.3-5.7); RDW 13.5 (10.5-15.0)
[2024-08-19] MEDS ORDERED: SODIUM CHLORIDE 0.9% 1,000 ML IV ONE (06:00)
[2024-08-19] MEDS ORDERED: ondansetron HCL 4 MG/2 ML VIAL IV ONE (06:00)
[2024-08-19 06:07] LABS: CASTS, URINE NONE SEEN \\lpf; CRYSTALS, URINE NONE SEEN (0-1+); EPITHELIAL CELLS, URINE SQUAMOUS 3+ /lpf (0-1+); RED BLOOD CELLS, URINE 0-1 /hpf (0-5)
[2024-08-19 06:08] LABS: BACTERIA, URINE 1+ /hpf (negative); COLLECTION TYPE, URINE CLEAN CATCH; REFLEX CULTURE, URINE No (No)
[2024-08-19 06:15] LABS: ALBUMIN 3.6 g/dL (3.4-5.0); ALBUMIN/GLOBULIN RATIO 0.82 (1.1-2.4); BILIRUBIN, TOTAL 1.6 mg/dL (0.2-1.0); BUN/CREATININE RATIO 14.92 (6.0-28.6); CALCIUM 9.2 mg/dL (8.5-10.1); CREATININE, SERUM 0.67 mg/dL (0.55-1.02); MAGNESIUM 1.7 mg/dL (1.8-2.4)
[2024-08-19] MEDS ORDERED: CEFTRIAXONE SODIUM 2 GM VIAL ONE (06:18)
[2024-08-19 06:26] LABS: CORONAVIRUS COVID-19 AG NEGATIVE (NEGATIVE); INFLUENZA A AG NEGATIVE (NEGATIVE); INFLUENZA B AG NEGATIVE (NEGATIVE)
[2024-08-19] MEDS ORDERED: ACETAMINOPHEN 325 MG TAB PO ONE (06:30)
[2024-08-19] MEDS ORDERED: CEFTRIAXONE SODIUM 2 GM in SODIUM CHLORIDE 0.9% 100 ML IV ONE (06:30)
[2024-08-19] MEDS ORDERED: PHENAZOPYRIDINE HCL 100 MG TAB PO ONE (06:45)
[2024-08-19] MEDS ORDERED: ONDANSETRON 4 MG HOME.PACK SL ONE (07:00)
[2024-08-19] MEDS ORDERED: ONDANSETRON ODT8 MG PO (07:00)
[2024-08-19] MEDS ORDERED: CEFDINIR 300 MG HOME.PACK PO ONE (07:00)
[2024-08-19] MEDS ORDERED: CEFDINIR300 MG PO (07:00)
[2024-08-19] MEDS ORDERED: PYRIDIUM200 MG PO (07:02)
[2024-08-19 07:44] VITALS: BP 132/66
== END 2024-08-19 07:44 | disposition home or self-care (01) ==
LOC: ED 05:18
PROVIDERS: Family Medicine
DX: N39.0 Urinary tract infection, site not specified (principal); I10 Essential (primary) hypertension; E11.9 Type 2 diabetes mellitus without complications; E78.00 Pure hypercholesterolemia, unspecified; H54.7 Unspecified visual loss; Z88.0 Allergy status to penicillin; Z91.018 Allergy to other foods; Z88.5 Allergy status to narcotic agent; Z79.82 Long term (current) use of aspirin; Z79.4 Long term (current) use of insulin; Z79.85 Long-term (current) use of injectable non-insulin antidiabetic drugs
CPT/HCPCS: 36415; 80053; 81001; 83735; 85025; 96374; 96375; 99284-25; A9270; J2405; J7030

== ENCOUNTER 2024-09-10 20:27 | Emergency (ER) | payer MEDICARE, OTHER ==
[~2024-09-10] VITALS: Ht 154.9 cm; Wt 66.5 kg
[~2024-09-10 20:27] MED LIST changes: +CEFDINIR300 MG PO; +ONDANSETRON ODT8 MG PO
--- OUTSIDE RECORDS SUMMARY | 2024-09-10 20:34 | XMS ---
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 Ander VISIT COUNT (12 MO.) 3 [facility] TOTAL 3 NOTE: Visits indicate total known visits. ED/UCC VISIT TRACKING (12 MO.) 09/10/2024 20:28 [facility] TYPE: Emergency COMPLAINT: - COLD SYMPTOMS 08/19/2024 05:27 [facility] TYPE: Emergency COMPLAINT: - VOMITING DIAGNOSES: - Allergy status to narcotic agent - Allergy status to penicillin - Allergy to other foods - Essential (primary) hypertension - termite renewal inspector (current) use of aspirin - termite renewal inspector (current) use of insulin - Long-term (current) use of injectable non-insulin antidiabetic drugs - Pure hypercholesterolemia, unspecified - Type 2 diabetes mellitus without complications - Unspecified visual loss - Urinary tract infection, site not specified - Vomiting, unspecified 06/03/2024 08:25 [facility] TYPE: Emergency COMPLAINT: - FLU SYMPTOMS INPATIENT VISIT TRACKING (12 MO.) 06/03/2024 13:[address] [facility] [place] TYPE: Medical Surgical COMPLAINT: - ELEVATED LIVER ENZYMES DIAGNOSES: - Abnormal levels of other serum enzymes - Abnormal levels of other serum enzymes - Acquired absence of both cervix and uterus - Acquired absence of both cervix and uterus - Acquired absence of other organs - Acquired absence of other organs - Acquired absence of other specified parts of digestive tract - Acquired absence of other specified parts of digestive tract - Acute and subacute hepatic failure without coma - Acute and subacute hepatic failure without coma - Adverse effect of other drugs, medicaments and biological substances, initial encounter - Adverse effect of other drugs, medicaments and biological substances, initial encounter - Allergy status to narcotic agent - Allergy status to narcotic agent - Allergy status to penicillin - Allergy status to penicillin - Allergy to other foods - Allergy to other foods - Essential (primary) hypertension - Essential (primary) hypertension - Hypo-osmolality and hyponatremia - Hypo-osmolality and hyponatremia - alf (current) use of aspirin - termite renewal inspector (current) use of aspirin - termite renewal inspector (current) use of insulin - alf (current) use of insulin - Other penitentiary (current) drug therapy - Other penitentiary (current) drug therapy - Other specified postprocedural states - Other specified postprocedural states - Pelvic and perineal pain - Personal history of COVID-19 - Personal history of COVID-19 - Personal history of urinary (tract) infections - Personal history of urinary (tract) infections - Sepsis, unspecified organism - Sepsis, unspecified organism - Tubal ligation status - Tubal ligation status - Type 2 diabetes mellitus without complications - Type 2 diabetes mellitus without complications - Unspecified visual loss - Unspecified visual loss - Urgency of urination - Urgency of urination - Urinary tract infection, site not specified - Urinary tract infection, site not specified [email or web address]
[2024-09-10] MEDS ORDERED: LISINOPRIL10 MG PO (20:42)
[2024-09-10] MEDS ORDERED: ondansetron HCL 4 MG/2 ML VIAL IV ONE (20:45)
[2024-09-10 21:05] LABS: BASOPHILS 0.4 % (0-2); EOSINOPHILS 2.3 % (0-6); HEMOGLOBIN 13.5 g/dL (12.0-18.0); LYMPHOCYTES 11.3 % (24-44); MCH 29.2 (27-36); MCHC 33.8 g/dl (30-36); MCV 86.5 fl (81-99); MONOCYTES 7.8 % (0-12); NEUTROPHILS 78.2 % (39-80); PLATELET COUNT 235 K/uL (140-440); RBC 4.63 M/ul (4.3-5.7)
[2024-09-10 21:17] LABS: BILIRUBIN, URINE NEGATIVE (negative); BLOOD/HGB, URINE NEGATIVE (Negative); KETONE, URINE NEGATIVE (Negative); LEUK ESTERASE, URINE NEGATIVE (negative); NITRITE, URINE NEGATIVE (negative); PH, URINE 7.5 (5-7)
[2024-09-10 21:21] LABS: ALBUMIN 3.3 g/dL (3.4-5.0); ALBUMIN/GLOBULIN RATIO 0.85 (1.1-2.4); ANION GAP 13.9 (7-21); BILIRUBIN, TOTAL 0.6 mg/dL (0.2-1.0); BUN/CREATININE RATIO 14.49 (6.0-28.6); CALCIUM 9.4 mg/dL (8.5-10.1); CREATININE, SERUM 0.69 mg/dL (0.55-1.02); MAGNESIUM 1.8 mg/dL (1.8-2.4); POTASSIUM 3.9 mmol/L (3.5-5.1); PROTEIN, TOTAL 7.2 g/dL (6.4-8.2)
[2024-09-10] MEDS ORDERED: ONDANSETRON 4 MG HOME.PACK SL ONE (23:45)
[2024-09-11 00:05] VITALS: BP 120/66
== END 2024-09-11 00:07 | disposition home or self-care (01) ==
LOC: ED 20:27
PROVIDERS: Emergency Medicine
DX: J98.9 Respiratory disorder, unspecified (principal); I10 Essential (primary) hypertension; E11.9 Type 2 diabetes mellitus without complications; Z88.0 Allergy status to penicillin; Z91.018 Allergy to other foods; Z88.5 Allergy status to narcotic agent; Z79.82 Long term (current) use of aspirin; Z79.4 Long term (current) use of insulin; Z79.899 Other long term (current) drug therapy
CPT/HCPCS: 36415; 80053; 81003; 83735; 85025; 96374; 99283-25; A9270; J2405